=== PATIENT | female | born 1950 | race Caucasian/White ===

== ENCOUNTER 2021-10-02 10:03 | Outpatient (CLI) | payer MEDICARE | END 2021-10-02 10:04 | disposition home or self-care (01) | LOC: CSHMRI 10:03 | PROVIDERS: ATTEND Psychiatry & Neurology Neurology | DX: G31.84 Mild cognitive impairment of uncertain or unknown etiology (principal); R94.02 Abnormal brain scan | CPT/HCPCS: 70553 ==